=== PATIENT | female | born 1990 | race Caucasian/White ===

== ENCOUNTER 2016-12-11 07:22 | Inpatient (IN) | payer OTHER ==
[~2016-12-11] VITALS: Ht 157.5 cm; Wt 77.3 kg
[2016-12-11] MEDS: LACTATED RINGER'S 1000ML 500 ML IV PRN ×2 (07:20→08:20)
[~2016-12-11 07:22] MED LIST: ALBUAER INH; BCPILLS PO; ONDA4TAB7 SL
[2016-12-11 07:55] LABS: HEMATOCRIT 37.8 % (37-47); MEAN CELL VOLUME 92.2 fL (80-100); MEAN CORPUSCULAR HEMOGLOBIN 29.5 pg (25-34); MEAN PLATELET VOLUME 12.8 fL (7.4-10.4); PLATELET COUNT 165 K/uL (130-400); WHITE BLOOD COUNT 11.48 K/uL (4.8-10.8)
[2016-12-11] MEDS ORDERED: EpHEDrine SULFATE INJ 50 MG/ML AMP ONE (08:21)
[2016-12-11] MEDS ORDERED: BUPIVACAINE 0.25% 30 ML VIAL ONE ×2 (08:21→11:36)
[2016-12-11] MEDS ORDERED: FENTANYL CITRATE INJ 50 MCG/1 ML 2 ML VIAL ONE (08:22)
[2016-12-11] MEDS ORDERED: FENTANYL 2MCG/ML ROPIV 1.25MG/ML 100ML BAG EPI ONE (08:22)
[2016-12-11] MEDS ORDERED: FENTANYL 2MCG/ML ROPIV 1.25MG/ML 100ML BAG EPI PRN (08:30)
[2016-12-11] MEDS ORDERED: EpHEDrine SULFATE INJ 50 MG/ML AMP IV PRN (08:30)
[2016-12-11] MEDS ORDERED: NALOXONE HCL INJ 0.4 MG/1 ML VIAL/CARP IV PRN (08:30)
[2016-12-11 08:33] VITALS: Ht 157.5 cm; Wt 77.3 kg
[2016-12-11] MEDS ORDERED: PRENTAB26 PO (08:41)
[2016-12-11] MEDS ORDERED: OXYTOCIN 30 UNITS/500ML NSS IV ONE (09:05)
[2016-12-11] MEDS ORDERED: OXYCODONE/ACETAMINOPHEN 5-325 TAB PO PRN (10:15)
[2016-12-11] MEDS ORDERED: ACETAMINOPHEN 325 MG TAB PO PRN (10:15)
[2016-12-11] MEDS ORDERED: DIPHTHERIA/TETANUS/PERTUSSIS 0.5 ML SYR/VIAL IM. ONE (10:15)
[2016-12-11] MEDS ORDERED: BENZOCAINE 20% AER SPR 82.5 GM CAN EXT PRN (10:15)
[2016-12-11] MEDS ORDERED: HYDROCORTISONE ACETATE 25 MG SUPP PR PRN (10:15)
[2016-12-11] MEDS ORDERED: SUPERCREAM 0.870 % 15GM JAR EXT PRN (10:15)
[2016-12-11] MEDS ORDERED: MEASLES, MUMPS & RUBELLA VIRUS VIAL SQ. ONE (10:15)
[2016-12-11] MEDS ORDERED: NURSING VERBAL MED ORDER ONE (10:15)
[2016-12-11] MEDS ORDERED: LANOLIN OINT EXT PRN ×2 (10:15)
[2016-12-11] MEDS ORDERED: OXYTOCIN 30 UNITS/500ML NSS IV PRN (10:15)
--- NOTE | 2016-12-11 10:22 | Vaginal Delivery Summary ---
Vaginal Delivery Summary Patient was found to be fully dilated and had bloody show and she desired to push. She pushed for about 48 min and delivered the head and the shoulders with minimal traction at 0952 am. There was a loose nuchal cordx1, which was reduced. The baby was handed off to the mother. The cord was clampedx2 and cut at 1 minute. The vagina and perineum were checked and found to have a small 2nd degree perineal laceration. Rectal exam was done and noted good sphincter tone. The gloves were changes. The placenta was delivered spontaneously as intact and complete at 0957am. There noted to be a 1000 cc blood cloth next to the placenta under the membrane on maternal side. The uterus was explored and found to be empty but irregular surface on anterior endometrial wall. With Boom curette it was curetted and small membrane was retrieved. The rest of the endometrium was smooth and empty. EBL was 200 ml. The fundus was firm The vaginal mucosa was repaired with 2/0 vicryl and skin on subcuticular fashion. The baby was a viable female , Apgars 8/9, the weight is pending The mother and the baby tolerated the procedure well. The sponge, instrument and needle count was correct. She was given 2 gr of Cefazolin once. No complications happened and I was present during whole procedure
[2016-12-11] MEDS ORDERED: CEFAZOLIN IV 2,000 MG in DEXTROSE 5% 50ML 50 ML IV ONE (10:30)
[2016-12-11] MEDS: IBUPROFEN 600 MG TAB PO PRN ×3 (10:40→20:12)
--- NOTE | 2016-12-11 11:14 | Anesthesia Procedure Note ---
Anesthesia Epidural Removal Nt Date & Time Dec 11, 2016 at 11:14 Notes Mental Status: alert / awake / arousable, participated in evaluation Nausea / Vomiting: adequately controlled Pain: adequately controlled Airway Patency, RR, SpO2: stable & adequate BP & HR: stable & adequate Hydration State: stable & adequate Neuraxial Anesthesia: was administered Anesthetic Complications: no major complications apparent, pt satisfied with anesthetic care Epidural: removed without complications, with tip intact
[2016-12-11 14:00] VITALS: BP 120/53; PULSE 57; TEMP 37
[2016-12-11 16:10] VITALS: BP 108/60; PULSE 57; TEMP 36.8
[2016-12-11 20:00] VITALS: BP 109/73; PULSE 59; TEMP 36.7; O2SAT 98
[2016-12-11 23:00] VITALS: BP 93/57; PULSE 56; TEMP 36.6; O2SAT 98
[2016-12-12 03:55] VITALS: BP 104/66; PULSE 54; TEMP 36.7; O2SAT 99
[2016-12-12 07:14] LABS: HEMATOCRIT 31.9 % (37-47)
[2016-12-12 07:23] VITALS: BP 109/71; PULSE 56; TEMP 36.7; O2SAT 98
[2016-12-12] MEDS: IBUPROFEN 600 MG TAB PO PRN (07:37)
[2016-12-12] MEDS ORDERED: FERROUS SULFATE 325 MG TAB PO SCH (08:00)
[2016-12-12] MEDS ORDERED: PRENATAL VITAMIN TAB PO SCH (08:00)
[2016-12-12] MEDS ORDERED: NICOTINE 7 MG/24 HR TDSY TD SCH (08:00)
[2016-12-12] MEDS ORDERED: MTR600X PO (08:02)
--- NOTE | 2016-12-12 08:04 | Discharge Instructions ---
Discharge Instructions Date of Service Dec 12, 2016. Admission Reason for Admission: Check Labor Discharge Discharge Diagnosis / Problem: term delivered Discharge Goals Goal(s): Routine recovery after delivery Activity Recommendations Activity Limitations: as noted below Lifting Limitations: gradually increase as tolerated Exercise/Sports Limitations: gradually increase as tolerated May Resume Sexual Activity: after follow-up appointment Shower/Bathe: no limitations Driving or Machine Use: resume 3 days after discharge . Instructions / Follow-Up Instructions / Follow-Up ACTIVITY RECOMMENDATIONS: * Gradual return to full activity over the next 2-3 weeks. * No lifting - nothing heavier than baby over the next 2-3 weeks. * Do not engage in vigorous exercise, sexual activity or sports until cleared by your physician. * Do not drive or operate any motorized equipment until cleared by your physician. * You may shower/bathe daily. BREAST CARE: If you are not breast feeding: * Wear a supportive bra 24 hours a day for one to two weeks. * Avoid stimulating your breasts and nipples as much as possible during the first few weeks after delivery. * When taking a shower, have the warm water hit your back, not breasts. * When your breasts feel full, apply ice packs. Usually three to four times a day helps ease the discomfort. * Take a mild pain medication (Tylenol/Motrin) when you are uncomfortable. If breast feeding: * Use breast milk to lubricate nipples. Lansinoh cream may be used for sore nipples. You do not need to remove cream prior to breast feeding. If using a different brand of cream, check the label for directions regarding removal of cream prior to nursing. * Wear a supportive bra. * If having problems with breasts or breast feeding, call a information technology consultant or your health care provider. EPISIOTOMY CARE: After delivery, if you have an episiotomy (stitches), the following steps will ease discomfort and aid healing. * For the first 24 hours after delivery, place ice packs next to your episiotomy to help reduce swelling. * After the first 24 hour-period, sitz baths, either portable or in the tub, are suggested. A shower with a shower arm sprayed over the episiotomy may be comforting. * Denise care should be done after each voiding and bowel movement. Squirt warm water from a plastic bottle over the perineum (region of the body between the anus and urinary opening) and pat dry. * Use Dermoplast to ease discomfort. Shake container. Cornell directly over the episiotomy. * Place a Tucks on a clean sanitary pad next to your episiotomy. OVER THE COUNTER MEDICATION: * For discomfort or pain, you may use Acetaminophen (Tylenol), Ibuprofen (Advil ), or Naproxen (Aleve) following the package directions. * For constipation you may use Colace following the package directions. SPECIAL CARE INSTRUCTIONS: When you are discharged from the hospital, it is important for you to follow the instructions listed below: * During the first week at home, you should be able to care for yourself and your baby. In addition, the usual light household activities are encouraged. * Limit your activities to the way you feel. Do not try to clean the house or move furniture. Be sensible. * If you actively engage in sports and have done so up until the time of your delivery, you may resume these activities as soon as you feel able. This may take up to one month or even longer. Use good judgment. * Continue to take your vitamins for at least six weeks after the of your baby. * Your diet need not be limited unless you were on a special diet before your delivery. Breast-feeding mothers need around 2500 calories per day and at least 64-80 ounces of fluid per day (8 to 10 glasses). * You should eat foods from the four major food groups. Crash diets or fad diets are to be avoided. Eating lean meats, fresh fruits and vegetables, low-fat dairy products, high fiber foods and a regular exercise program, will help you get back to your pre- weight without putting your health at risk. * Constipation is sometimes a problem after delivery. Take a mild laxative as needed. If breast feeding, Milk of Magnesia is acceptable to use. You may use a suppository or Fleets enema if no episiotomy. * A daily shower or tub bath is suggested. Be sure to thoroughly and gently dry the perineum. * A bloody vaginal discharge will usually continue until around four weeks post . A small amount of bleeding may continue for as long as six weeks. Vaginal discharge changes from the bright red bleeding after delivery to pink then brownish and finally yellowish-pink before becoming white and disappearing. * Bleeding may increase with activity. Your first period may come in 4-8 weeks. If you are breast feeding, your period may be delayed even longer. * [place] (sex) can begin whenever both you and your partner feel comfortable and do not have any form of genital infection. It is recommended that you wait until after your return appointment and discuss with your physician. If you have questions, please talk to your health care practitioner. A condom should be used to prevent infection and . * Foreplay, gentle intercourse and lubrication is very important the first several times to prevent pain. A water-based lubricant such as K-Y jelly or Astroglide may be used. * Tampons may be used six weeks after delivery. * Douching should be avoided for 6 weeks after delivery. * If you have RH negative blood and your baby is RH positive, you will receive RHOGAM by injection prior to discharge. The nurse will give you a card to keep with you that has the date and place that you received RHOGAM after delivery. * During your care, you had a Rubella screen done to check for the presence of rubella antibodies in your blood. If your test was negative, you will receive a Rubella vaccine prior to discharge. This vaccine may cause a fever, soreness at the injection site and flu-like symptoms. If these symptoms persist, notify your health care practitioner. is not advised for three months after a Rubella vaccine. There is a higher chance of having a baby with defects if conceived within three months of getting the vaccine. * If you were discharged 24 hours from delivery or before 48 hours: Visiting nurses will come to your home 48 hours after discharge to assess you and your baby. The visiting nurse will meet with you while you are in the hospital to arrange a time and get directions to your home. * Verbalizes understanding of car seat law as reviewed with patient nursing. * Car Seat hand-out given and reviewed with patient by nursing. * Shaken baby information reviewed with patient by nursing. Call you doctor if: * Heavy bleeding (saturating several pads an hour) or passing clots the size of your fist. * A fever >101 degrees F (38.3 degrees C) on two occasions four hours apart and/or chills. * Unusual pain in the pelvic or vaginal areas. * "Baby Blues" lasting longer than two weeks. If you have any questions or concerns, call your health care practitioner at . FOLLOW-UP VISIT: * Please call the office at to schedule a 6 week examination. It is important you keep this appointment. * It is important for you to make arrangements for either yearly or twice yearly check-ups thereafter. Current Hospital Diet Patient's current hospital diet: Regular OB Diet Discharge Diet Recommended Diet: Regular OB Diet Pending Studies Studies pending at discharge: no Medical Emergencies . Who to Call and When: Medical Emergencies: If at any time you feel your situation is an emergency, please call 911 immediately. . Non-Emergent Contact Non-Emergency issues call your: Primary Care Provider . . "Provider Documentation" section prepared by Tyrese Dick. . VTE Core Measure Inpt VTE Proph given/why not?: Treatment not indicated
--- NOTE | 2016-12-12 08:05 | OB/GYN Progress Note ---
INSURANCE LOSS ASSESSOR Progress Note Date of Service Dec 12, 2016. Subjective conversation w/ patient, physical exam Ambulation: ambulating normally Voiding: no voiding problems, no incontinence Passing Gas: Yes Diet Tolerance: Regular Diet Lochia: Small Feeding Type: Bottle Feeding Objective Vital Signs Date Time Temp Pulse Resp B/P (MAP) Pulse Ox O2 Delivery O2 Flow Rate FiO2 12/12/16 07:23 36.7 56 20 109/71 (84) 98 Room Air 12/12/16 03:55 36.7 54 16 104/66 (79) 99 Room Air 12/11/16 23:00 36.6 56 16 93/57 (69) 98 Room Air 12/11/16 23:00 98 Room Air 12/11/16 20:00 36.7 59 18 109/73 (85) 98 Room Air 12/11/16 16:10 36.8 57 16 108/60 (76) 12/11/16 14:00 37.0 57 16 120/53 (75) Physical Exam General Appearance: WELL-APPEARING, NO APPARENT DISTRESS Abdomen: non tender, soft Fundus: Firm Extremities: non-tender, normal inspection, no pedal edema, no calf tenderness Laboratory Results Last 24 Hours Test 12/12/16 06:43 Hemoglobin 10.3 g/dL Hematocrit 31.9 % Assessment and Plan Post- Day Number: 1 Continue Routine Care: discharged
[2016-12-12 13:00] VITALS: BP_DIAS 71; PULSE 56; TEMP 36.7
[2016-12-12] MEDS ORDERED: BISACODYL 5 MG TABEC PO SCH (20:00)
[2016-12-13] MEDS ORDERED: BISACODYL 10 MG SUPP PR PRN (07:00)
== END 2016-12-12 13:00 | disposition home or self-care (01) | DRG 775 ==
LOC: C.OPB 07:22 → C.LD 07:22 → C.OPB 07:38 → C.LD 07:38 → C.OBG 13:32
PROVIDERS: ADMIT Obstetrics & Gynecology; ATTEND Obstetrics & Gynecology
PROC: 0KQM0ZZ Repair Perineum Muscle, Open Approach (ICD-10-PCS; principal; 2016-12-11)
PROC: 10E0XZZ Delivery of Products of Conception, External Approach (ICD-10-PCS; principal; 2016-12-11)
DX: O99.52 Diseases of the respiratory system complicating childbirth (principal); Z37.0 Single live birth; J45.909 Unspecified asthma, uncomplicated; O70.1 Second degree perineal laceration during delivery; O99.334 Smoking (tobacco) complicating childbirth; F17.210 Nicotine dependence, cigarettes, uncomplicated; O69.81X0 Labor and delivery complicated by cord around neck, without compression, not applicable or unspecified; Z79.899 Other long term (current) drug therapy; Z3A.39 39 weeks gestation of pregnancy